=== PATIENT | male | born 1960 | race African-American/Black ===

== ENCOUNTER 2019-01-14 14:10 | Inpatient (IN) | payer OTHER ==
[2019-01-14 16:07] VITALS: BMI 23.8
--- NOTE | 2019-01-14 18:07 | HP ---
CIWA Score Nausea/Vomitin-Mild Nausea/No Vomiting Muscle Tremors: 4-Moderate,w/Arms Extend Anxiety: 3 Agitation: 3 Paroxysmal Sweats: 3 Orientation: 0-Oriented Tacttile Disturbances: 0-None Auditory Disturbances: 0-None Visual Disturbances: 0-None Headache: 0-None Present CIWA-Ar Total Score: 14 - Admission Criteria [facility]AS[facility] Guidelines: Admission for Medically Managed Detox: Requires at least one of the followin. CIWA greater than 12 2. Seizures within the past 24 hours 3. Delirium tremens within the past 24 hours 4. Hallucinations within the past 24 hours 5. Acute intervention needed for co occurring medical disorder 6. Acute intervention needed for co occurring psychiatric disorder 7. Severe withdrawal that cannot be handled at a lower level of care (continued vomiting, continued diarrhea, abnormal vital signs) requiring intravenous medication and/or fluids 8. Admission ROS [facility] - HPI Chief Complaint: i need help to stop drinking. Allergies/Adverse Reactions: Allergies Allergy/AdvReac Type Severity Reaction Status Date / Time haloperidol [From Haldol] AdvReac stiffness Verified 11/08/15 14:44 haloperidol lactate AdvReac stiffness Verified 11/08/15 14:44 [From Haldol] peaches Allergy Severe Hives Uncoded 11/08/15 14:44 History of Present Illness: pt is a 58yrold male with a history of alcohol dependence seeking detox for treatment. pt has had no significant sobriety Exam Limitations: No Limitations - Ebola screening Have you traveled outside of the country in the last 21 days: No Have you had contact with anyone from an Ebola affected area: No Have you been sick,other than usual withdrawal symptoms: No Do you have a fever: No - Review of Systems Constitutional: Chills, Loss of Appetite, Night Sweats, Changes in sleep EENT: reports: Nose Congestion, Dental Problems (missing teeth) Respiratory: reports: No Symptoms reported Cardiac: reports: No Symptoms Reported GI: reports: Poor Appetite : reports: No Symptoms Reported Musculoskeletal: reports: No Symptoms Reported Integumentary: reports: No Symptoms Reported Neuro: reports: No Symptoms reported, Tremors Endocrine: reports: No Symptoms Reported Hematology: reports: No Symptoms Reported Psychiatric: reports: Orientated x3, Agitated, Anxious Other Systems: Reviewed and Negative Patient History - Patient Medical History Hx Anemia: No Hx Asthma: No Hx Chronic Obstructive Pulmonary Disease (COPD): No Hx Cancer: No Hx Cardiac Disorders: No Hx Congestive Heart Failure: No Hx Hypertension: No Hx Hypercholesterolemia: No Hx Pacemaker: No HX Cerebrovascular Accident: Yes (cardiac arrest 6yrs ago) Hx Seizures: No Hx Dementia: No Hx Diabetes: No Hx Gastrointestinal Disorders: No Hx Liver Disease: No Hx Genitourinary Disorders: No Hx Sexually Transmitted Disorders: Yes (syphilis/treated 40yrs ago) Hx Renal Disease (ESRD): No Hx Thyroid Disease: No Hx Human Immunodeficiency Virus (HIV): No (negative) Hx Hepatitis C: No Hx Depression: Yes Hx Suicide Attempt: No (denies) Hx Bipolar Disorder: Yes Hx Schizophrenia: Yes - Patient Surgical History Past Surgical History: Yes Hx Neurologic Surgery: No Hx Cataract Extraction: No Hx Cardiac Surgery: No Hx Lung Surgery: No Hx Breast Surgery: No Hx Breast Biopsy: No Hx Abdominal Surgery: No Hx Appendectomy: No Hx Cholecystectomy: No Hx Genitourinary Surgery: No Hx Section: No Hx Orthopedic Surgery: No Other Surgical History: skin grafting, right middle finger Anesthesia Reaction: No - PPD History Previous Implant?: Yes Documented Results: Negative w/o proof PPD to be Administered?: Yes - Reproductive History Patient is a Female of Child Bearing Age (11 -55 yrs old): No - Smoking Cessation Smoking history: Current every day smoker Have you smoked in the past 12 months: Yes Aproximately how many cigarettes per day: 20 Hx Chewing Tobacco Use: No Initiated information on smoking cessation: Yes 'Breaking Loose' booklet given: 01/14/19 - Substance & Tx. History Hx Alcohol Use: Yes Substance Use Type: Alcohol Hx Substance Use Treatment: Yes (last detox ) - Substances Abused Alcohol Route: Oral Frequency: Daily Amount used: 1-2 pints vodka Age of first use: 13 Date of Last Use: 01/13/19 Family Disease History - Family Disease History Family Disease History: Heart Disease: Mother (mi at age 72, ) Admission Physical Exam S - Vital Signs Vital Signs: Vital Signs - 24 hr 01/14/19 16:01 Temperature 96.6 F L Pulse Rate 64 Respiratory 20 Rate Blood Pressure 140/79 - Physical General Appearance: Yes: Disheveled, Tremorous, Irritable, Sweating, Anxious, Other (malordorous) HEENTM: Yes: Normal Voice, Rhinorrhea Respiratory: Yes: Lungs Clear, Normal Breath Sounds, No Respiratory Distress Neck: Yes: No masses,lesions,Nodules Breast: Yes: Within Normal Limits Cardiology: Yes: Regular Rhythm, Regular Rate, S1, S2 Abdominal: Yes: Normal Bowel Sounds Genitourinary: Yes: Within Normal Limits Back: Yes: Normal Inspection Musculoskeletal: Yes: full range of Motion Extremities: Yes: Normal Capillary Refill, Normal Inspection, Tremors Neurological: Yes: Fully Oriented, Alert, Normal Response Integumentary: Yes: Normal Color, Diaphoresis Lymphatic: Yes: Within Normal Limits - Diagnostic (1) Alcohol dependence with uncomplicated withdrawal Current Visit: Yes Status: Chronic (2) Bipolar affective disorder, manic, severe, with psychotic behavior Current Visit: No Status: Acute (3) Substance induced mood disorder Current Visit: No Status: Acute (4) Nicotine dependence, uncomplicated Current Visit: Yes Status: Chronic Qualifiers: Nicotine product type: cigarettes Qualified Code(s): F17.210 - Nicotine dependence, cigarettes, uncomplicated Cleared for Admission [facility] - Detox or Rehab [facility] Level of Care: Medically Managed Detox Regimen/Protocol: Valium [facility] Breath Alcohol Content Breath Alcohol Content: 0 Urine Drug Screen - Results Drug Screen Negative: No Urine Drug Screen Results: THC-Marijuana, DAVID-Cocaine Inpatient Rehab Admission - Rehab Decision to Admit Inpatient rehab admission?: No
[2019-01-14] MEDS ORDERED: MAGNESIUM HYDROX 2400MG/30ML ORAL SUSPENSION 30 ML CUP PO PRN (18:23)
[2019-01-14] MEDS ORDERED: guaiFENesin/D-METHORPHAN HB 10 ML UNIT-DOSE CUPS PO PRN (18:23)
[2019-01-14] MEDS ORDERED: diazePAM 5 MG TABLET PO PRN (18:23)
[2019-01-14] MEDS ORDERED: MAGNESIUM CITRATE 300 ML BOTTLE PO PRN (18:23)
[2019-01-14] MEDS ORDERED: LOPERAMIDE HCL 2 MG CAPSULE PO PRN (18:23)
[2019-01-14] MEDS ORDERED: IBUPROFEN 400 MG TABLET (FP) PO PRN (18:23)
[2019-01-14] MEDS ORDERED: MENTHOL/PHENOL 1 EACH UD MM PRN (18:23)
[2019-01-14] MEDS ORDERED: P-EPHED 60MG/TRIPROLIDI 2.5MG TABLET PO PRN (18:23)
[2019-01-14] MEDS ORDERED: MAG HYDROX/AL HYDROX/SIMETH 30 ML UNIT-DOSE CUP PO PRN (18:23)
[2019-01-14] MEDS ORDERED: NICOTINE POLACRILEX 4 MG GUM BC PRN (18:23)
[2019-01-14] MEDS ORDERED: hydrOXYzine PAMOATE 25 MG CAPSULE (FP) PO PRN (18:23)
[2019-01-14] MEDS ORDERED: ACETAMINOPHEN 325 MG TABLET (FP) PO PRN (18:23)
[2019-01-14] MEDS ORDERED: diazePAM 5 MG TABLET PO ONE (21:45)
[2019-01-14] MEDS ORDERED: MELATONIN 5 MG TABLETS PO PRN (22:00)
[2019-01-14] MEDS: diazePAM 5 MG TABLET PO SCH (22:00)
[2019-01-14] MEDS: THIAMINE HCL 100 MG TABLET (FP) PO SCH (22:02)
[2019-01-15] MEDS: diazePAM 5 MG TABLET PO SCH ×3 (07:30→22:33)
--- NOTE | 2019-01-15 07:35 | CONSULT ---
[facility] Psychiatric Consult - Data Date of interview: 01/15/19 Admission source: [facility] Identifying data: This is a 58 years old male , single, childless, living alone , on SSD, with history of Schizophrenia, Bipolar Disorder, wityh no psychiatric hospitalization history, with a history of Alcohol and Nicotine dependence, is reporting Alcohol withdrawal symptoms and swwking detox. Substance Abuse History: Smoking history: Current every day smoker. Have you smoked in the past 12 months: Yes. Aproximately how many cigarettes per day: 20. Hx Chewing Tobacco Use: No. Initiated information on smoking cessation: Yes. 'Breaking Loose' booklet given: 01/14/19. - Substance & Tx. History. Hx Alcohol Use: Yes. Substance Use Type: Alcohol. Hx Substance Use Treatment: Yes (last detox ). - Substances Abused. Alcohol. Route: Oral. Frequency: Daily. Amount used: 1-2 pints vodka. Age of first use: 13. Date of Last Use: 01/13/19 Medical History: Denies significant medical issues Psychiatric History: Patient reports to carry Schizophrenia and Bipolar Diasorder, denies history of psychiatric hospitalizations, reports taking prior to admission: Zyprexa 10mg poqd. Denies suicidal and homicidal history. Physical/Sexual Abuse/Trauma History: Denies Additional Comment: Zyprexa 10mg poqd Mental Status Exam - Mental Status Exam Alert and Oriented to: Person Cognitive Function: Fair Patient Appearance: Unkempt Mood: Sad Affect: Mood Congruent Patient Behavior: Cooperative Speech Pattern: Appropriate Voice Loudness: Mildly Soft/Quiet Thought Process: Goal Oriented Thought Disorder: Being Controlled Hallucinations: Denies Suicidal Ideation: Denies Homicidal Ideation: Denies Insight/Judgement: Fair Sleep: Difficulty falling asleep Appetite: Weight gain Muscle strength/Tone: Mild Hypotonicity Gait/Station: Shuffling Additional Comments: Zyprexa 10mg poqd Psychiatric Findings - Problem List (Cook 1, 2,3) (1) Alcohol dependence with uncomplicated withdrawal Current Visit: Yes Status: Chronic (2) Nicotine dependence, uncomplicated Current Visit: Yes Status: Chronic Qualifiers: Nicotine product type: cigarettes Qualified Code(s): F17.210 - Nicotine dependence, cigarettes, uncomplicated (3) Bipolar affective disorder, manic, severe, with psychotic behavior Current Visit: No Status: Acute (4) Substance induced mood disorder Current Visit: No Status: Acute - Initial Treatment Plan Initial Treatment Plan: Zyprexa 10mg poqd
[2019-01-15 11:00] LABS: ALBUMIN 3.2 g/dl (3.4-5.0); ALK PHOS 64 U/L (45-117); ANION GAP 6 MMOL/L (8-16); BILIRUBIN,TOTAL 0.4 mg/dL (0.2-1); BLOOD UREA NITROGEN 15 mg/dL (7-18); CALCIUM 7.9 mg/dL (8.5-10.1); CHLORIDE 106 mmol/L (98-107); CO2 26 mmol/L (21-32); GLUCOSE,RANDOM 82 mg/dL (74-106); HEMATOCRIT 36.7 % (35.4-49); HEMOGLOBIN 12.5 GM/dL (11.7-16.9); MCH 28.5 pg (25.7-33.7); MEAN CELL VOLUME 83.8 fl (80-96); PLATELET COUNT 193 K/MM3 (134-434); POTASSIUM 4.4 mmol/L (3.5-5.1); RBC 4.38 M/mm3 (4.00-5.60); RDW 15.6 % (11.9-15.9); SGOT/AST 18 U/L (15-37); SGPT/ALT 19 U/L (13-61); SODIUM 138 mmol/L (136-145); TOT PROT 6.5 g/dl (6.4-8.2)
[2019-01-15] MEDS: PRENATAL VITAMINS W/ FOLIC ACID TABLET (FP) PO SCH (11:27)
--- NOTE | 2019-01-15 11:31 | PN ---
S CIWA - CIWA Score Nausea/Vomitin-No Nausea/No Vomiting Muscle Tremors: 3 Anxiety: 3 Agitation: 3 Paroxysmal Sweats: 3 Orientation: 0-Oriented Tacttile Disturbances: 0-None Auditory Disturbances: 0-None Visual Disturbances: 0-None Headache: 0-None Present CIWA-Ar Total Score: 12 S Progress Note (SOAP) Subjective: interrupted sleep sweats tired body aches Objective: 01/15/19 11:30 Vital Signs Temperature 98.1 F 01/15/19 09:38 Pulse Rate 74 01/15/19 09:38 Respiratory Rate 16 01/15/19 09:38 Blood Pressure 132/79 01/15/19 09:38 O2 Sat by Pulse Oximetry (%) Laboratory Tests 01/15/19 01/15/19 08:00 08:00 WBC 5.0 RBC 4.38 Hgb 12.5 Hct 36.7 MCV 83.8 MCH 28.5 MCHC 34.0 RDW 15.6 Plt Count 193 D MPV 8.0 Sodium 138 Potassium 4.4 Chloride 106 Carbon Dioxide 26 Anion Gap 6 L BUN 15 Creatinine 1.0 Creat Clearance w eGFR > 60 Random Glucose 82 Calcium 7.9 L Total Bilirubin 0.4 AST 18 ALT 19 Alkaline Phosphatase 64 Total Protein 6.5 Albumin 3.2 L aaox3 ambulating no acute distress Assessment: 01/15/19 11:30 withdrawal sx Plan: continue detox increase fluids
[2019-01-15] MEDS: NICOTINE 21 MG/24 HOURS TOPICAL PATCH TD SCH (13:31)
[2019-01-15] MEDS: THIAMINE HCL 100 MG TABLET (FP) PO SCH (22:33)
[2019-01-16] MEDS: OLANZapine 10 MG TABLET PO SCH (06:09)
--- NOTE | 2019-01-16 10:48 | PN ---
[facility] CIWA - CIWA Score Nausea/Vomitin-No Nausea/No Vomiting Muscle Tremors: 2 Anxiety: 2 Agitation: 3 Paroxysmal Sweats: 2 Orientation: 0-Oriented Tacttile Disturbances: 0-None Auditory Disturbances: 0-None Visual Disturbances: 0-None Headache: 0-None Present CIWA-Ar Total Score: 9 S Progress Note (SOAP) Subjective: sleepy sweats interrupted sleep Objective: 01/16/19 10:47 Vital Signs Temperature 97.7 F 01/16/19 09:28 Pulse Rate 64 01/16/19 09:28 Respiratory Rate 18 01/16/19 09:28 Blood Pressure 129/70 01/16/19 09:28 O2 Sat by Pulse Oximetry (%) Laboratory Tests 01/15/19 01/15/19 01/15/19 08:00 08:00 08:00 WBC 5.0 RBC 4.38 Hgb 12.5 Hct 36.7 MCV 83.8 MCH 28.5 MCHC 34.0 RDW 15.6 Plt Count 193 D MPV 8.0 Sodium 138 Potassium 4.4 Chloride 106 Carbon Dioxide 26 Anion Gap 6 L BUN 15 Creatinine 1.0 Creat Clearance w eGFR > 60 Random Glucose 82 Calcium 7.9 L Total Bilirubin 0.4 AST 18 ALT 19 Alkaline Phosphatase 64 Total Protein 6.5 Albumin 3.2 L RPR Titer Nonreactive aaox3 ambulating no acute distress Assessment: 01/16/19 10:47 withdrawal sx Plan: continue detox increase fluids
[2019-01-16] MEDS: diazePAM 5 MG TABLET PO SCH ×2 (11:13→23:06)
[2019-01-16] MEDS: PRENATAL VITAMINS W/ FOLIC ACID TABLET (FP) PO SCH (11:13)
[2019-01-16] MEDS: NICOTINE 21 MG/24 HOURS TOPICAL PATCH TD SCH (11:14)
[2019-01-16] MEDS: THIAMINE HCL 100 MG TABLET (FP) PO SCH (23:07)
[2019-01-17] MEDS: OLANZapine 10 MG TABLET PO SCH (06:22)
[2019-01-17] MEDS: NICOTINE 21 MG/24 HOURS TOPICAL PATCH TD SCH (10:05)
[2019-01-17] MEDS: PRENATAL VITAMINS W/ FOLIC ACID TABLET (FP) PO SCH (10:06)
[2019-01-17] MEDS: diazePAM 5 MG TABLET PO SCH ×2 (10:06→23:19)
--- NOTE | 2019-01-17 10:42 | PN ---
[facility] Progress Note (SOAP) Subjective: sweats feeling better Objective: 01/17/19 10:40 Vital Signs Temperature 97.9 F 01/17/19 08:58 Pulse Rate 76 01/17/19 08:58 Respiratory Rate 18 01/17/19 08:58 Blood Pressure 131/70 01/17/19 08:58 O2 Sat by Pulse Oximetry (%) Laboratory Tests 01/15/19 01/15/19 01/15/19 08:00 08:00 08:00 WBC 5.0 RBC 4.38 Hgb 12.5 Hct 36.7 MCV 83.8 MCH 28.5 MCHC 34.0 RDW 15.6 Plt Count 193 D MPV 8.0 Sodium 138 Potassium 4.4 Chloride 106 Carbon Dioxide 26 Anion Gap 6 L BUN 15 Creatinine 1.0 Creat Clearance w eGFR > 60 Random Glucose 82 Calcium 7.9 L Total Bilirubin 0.4 AST 18 ALT 19 Alkaline Phosphatase 64 Total Protein 6.5 Albumin 3.2 L RPR Titer Nonreactive aaox3 ambulating no acute distress Assessment: 01/17/19 10:41 withdrawal sx Plan: continue detox increase fluids d/c in am
[2019-01-17 22:48] VITALS: TEMP 97.9
[2019-01-17] MEDS: THIAMINE HCL 100 MG TABLET (FP) PO SCH (23:19)
[2019-01-18] MEDS: OLANZapine 10 MG TABLET PO SCH (06:35)
[2019-01-18 06:42] VITALS: BP 123/58; PULSE 65
[2019-01-18] MEDS ORDERED: diazePAM 5 MG TABLET PO SCH (10:00)
--- NOTE | 2019-01-18 16:13 | DS ---
[facility] Detox Discharge Summary Admission Date: 01/14/19 Discharge Date: 01/18/19 - History Present History: Alcohol Dependence Additional Comments: PT COMPLETED DETOX AND DISCHARGED TODAY. Pertinent Past History: CARDIAC ARREST 6 YRS AGO BIPOLAR DISORDER - Physical Exam Results Vital Signs: Vital Signs Temperature 97.9 F 01/18/19 06:00 Pulse Rate 65 01/18/19 06:00 Respiratory Rate 18 01/18/19 06:00 Blood Pressure 123/58 L 01/18/19 06:00 O2 Sat by Pulse Oximetry (%) Pertinent Admission Physical Exam Findings: WITHDRAWAL SX Laboratory Tests 01/15/19 01/15/19 01/15/19 08:00 08:00 08:00 WBC 5.0 RBC 4.38 Hgb 12.5 Hct 36.7 MCV 83.8 MCH 28.5 MCHC 34.0 RDW 15.6 Plt Count 193 D MPV 8.0 Sodium 138 Potassium 4.4 Chloride 106 Carbon Dioxide 26 Anion Gap 6 L BUN 15 Creatinine 1.0 Creat Clearance w eGFR > 60 Random Glucose 82 Calcium 7.9 L Total Bilirubin 0.4 AST 18 ALT 19 Alkaline Phosphatase 64 Total Protein 6.5 Albumin 3.2 L RPR Titer Nonreactive - Treatment Hospital Course: Detox Protocol Followed, Detoxed Safely, Responded well, Discharged Condition Good - Medication Discharge Medications: Ambulatory Orders Olanzapine [ZyPREXA -] 10 mg PO AM #30 tablet 01/15/19 - Diagnosis (1) Alcohol dependence with uncomplicated withdrawal Status: Acute (2) Nicotine dependence, uncomplicated Status: Acute Qualifiers: Nicotine product type: cigarettes Qualified Code(s): F17.210 - Nicotine dependence, cigarettes, uncomplicated - AMA Did Patient Leave Against Medical Advice: No
== END 2019-01-18 09:12 | disposition home or self-care (01) | DRG 897 ==
LOC: YASAS 14:10 → Y6N 20:09
PROVIDERS: ADMIT Surgery; ATTEND Surgery
PROC: HZ2ZZZZ Detoxification Services for Substance Abuse Treatment (ICD-10-PCS; principal; 2019-01-14)
DX: F10.230 Alcohol dependence with withdrawal, uncomplicated (principal); F31.2 Bipolar disorder, current episode manic severe with psychotic features; F19.24 Other psychoactive substance dependence with psychoactive substance-induced mood disorder; F20.9 Schizophrenia, unspecified; Z86.74 Personal history of sudden cardiac arrest
CPT/HCPCS: 36415; 80053; 85027; 86593